=== PATIENT | male | born 1950 | race Caucasian/White ===

== ENCOUNTER 2019-03-14 10:51 | Emergency (ER) | payer BC ==
[2019-03-14 11:03] VITALS: BP 140/82
--- NOTE | 2019-03-14 11:52 | UC ---
Lower Extremity/Ankle HPI - HPI Summary HPI Summary: He's been working a lot outside in the garden. This morning he woke up with left knee pain. He started to feel a little bit last evening with a tight feeling. It hurts to ambulate or to flex or extend. He's had no fever or chills. - History of Current Complaint Chief Complaint: UCLowerExtremity Stated Complaint: KNEE PAIN Time Seen by Provider: 03/14/19 11:02 Hx Obtained From: Patient Onset/Duration: Gradual Onset Severity Initially: Mild Severity Currently: Moderate Pain Intensity: 6 Aggravating Factor(s): Standing, Ambulation Alleviating Factor(s): Nothing Able to Bear Weight: Yes - Allergies/Home Medications Allergies/Adverse Reactions: Allergies Allergy/AdvReac Type Severity Reaction Status Date / Time No Known Allergies Allergy Verified 03/14/19 11:03 Home Medications: Home Medications Ibuprofen TAB* [Motrin TAB* 400 MG] 400 mg PO Q6H PRN 03/14/19 [History Confirmed 03/14/19] PMH/Surg Hx/FS Hx/Imm Hx Previously Healthy: Yes - Surgical History Surgical History: Yes Surgery Procedure, Year, and Place: 1971 knee surgery L - Social History Alcohol Use: Occasionally Substance Use Type: None Smoking Status (MU): Current Some Day Smoker Type: Cigars Review of Systems All Other Systems Reviewed And Are Negative: Yes Musculoskeletal: Positive: Arthralgia - Left knee Physical Exam - Summary Physical Exam Summary: He is nontoxic in appearance with stable vital signs. Triage Information Reviewed: Yes Appearance: Well-Appearing Vital Signs: Initial Vital Signs Temp 97.8 F 03/14/19 10:58 Pulse 65 03/14/19 10:58 Resp 14 03/14/19 10:58 BP 140/82 03/14/19 10:58 Pulse Ox 100 03/14/19 10:58 Vital Signs Reviewed: Yes Musculoskeletal Exam: Other - Is tender to range of motion of the knee. Worse with external rotation of the foot while flexing the knee Diagnostics - Radiology left knee Radiology Interpretation Completed By: Radiologist Summary of Radiographic Findings: Small joint effusion Lower Extremity Course/Dx - Course Course Of Treatment: I think this is an effusion caused by overuse. There is no evidence for a septic joint however he is warned that if he is not improving quickly he will need to follow up and possibly need to have an aspiration. He is placed in a knee immobilizer and crutches and recommended ibuprofen and rest. - Differential Dx/Diagnosis Provider Diagnosis: Knee effusion, left Discharge ED - Sign-Out/Discharge Documenting (check all that apply): Patient Departure All imaging exams completed and their final reports reviewed: Yes - Discharge Plan Condition: Stable Disposition: HOME Patient Education Materials: Swollen Knee Joint (ED) Referrals: Josafat Pittman MD [Primary Care Provider] - Lei Van MD [Medical Doctor] - Additional Instructions: With conservative treatment urine he should improve gradually. If you're worsening please go to the emergency department as you may need to have an aspiration of the knee. If the knee is not improving please follow up with Dr. Coburn - Billing Disposition and Condition Condition: STABLE Disposition: Home
== END 2019-03-14 12:28 | disposition home or self-care (01) ==
LOC: UCEAST 10:51
DX: M25.462 Effusion, left knee (principal); F17.210 Nicotine dependence, cigarettes, uncomplicated
CPT/HCPCS: 99202; G0463